=== PATIENT | female | born 1970 | race Caucasian/White ===

== ENCOUNTER 2019-12-14 13:29 | Emergency (ER) | payer MEDICAID, SELFPAY ==
[~2019-12-14] VITALS: Ht 165.1 cm; Wt 64.4 kg
[2019-12-14 13:41] VITALS: BP 142/71
--- NOTE | 2019-12-14 13:57 | NUR ---
PT IS HERE WITH HER DAUGHTER TO BE COVID SWABBED. DENIES ANY S/S. [facility]
--- NOTE | 2019-12-14 14:06 | NUR ---
PT COVID SWABBED AND GIVEN TO [employer]ILOS[employer]HY [employer]ACULTY MEMBER
[2019-12-14 14:34] VITALS: BP 142/71
--- NOTE | 2019-12-14 14:34 | NUR ---
Patient discharged with v/s stable. Written and verbal after care instructions given and explained. Patient verbalized understanding. Ambulatory with steady gait. All questions addressed prior to discharge. Advised to follow up with PMD.
== END 2019-12-14 14:34 | disposition home or self-care (01) ==
LOC: MED 13:29
DX: I10 Essential (primary) hypertension (principal); Z20.828 Contact with and (suspected) exposure to other viral communicable diseases
CPT/HCPCS: 99283; U0003